=== PATIENT | female | born 1980 | race Two or more races ===

== ENCOUNTER 2025-02-07 19:53 | Emergency (ER) | payer MEDICAID, SELFPAY ==
[2025-02-07 20:01] VITALS: PULSE 118; RESP 20; O2SAT 99
--- NOTE | 2025-02-07 20:05 | XR_ITS ---
Examination: Humerus 2 views left Technique: Humerus, AP lateral 2 views Date and time of exam: 2105 hours INDICATIONS: Patient fell today with injury to the arm, arm pain FINDINGS: Acute angulated displaced fracture distal humeral shaft No foreign body IMPRESSION: Acute angulated displaced fracture distal humeral shaft
--- NOTE | 2025-02-07 20:05 | XR_ITS ---
Examination: Forearm, left, 2 views. Technique: Forearm, AP, lateral 2 views Date and time of exam: 0909 hours INDICATIONS: Patient fell today with injury to forearm, forearm pain FINDINGS: No acute forearm fracture No dislocation Partial visualization angulated displaced fracture distal humerus IMPRESSION: Partial visualization angulated displaced fracture distal humeral shaft
--- NOTE | 2025-02-07 20:06 | EDNOTE_ITS ---
Upper Extremity Injury RME/HPI General Chief Complaint: Extremity Injury, Upper Stated Complaint: ARM FRACTURE Time Seen by Provider: 02/07/25 20:01 Arrival date/time: 02/07/25 19:53 RME / HPI RME / HPI narrative: 44-year-old female patient nonverbal, mentally delayed, was brought in by EMS for evaluation regarding possible shoulder injury. Apparently patient was on the chair rocking herself and the patient fell down and now patient is seems having pain to the left shoulder. No obvious deformity noted. No head injury no LOC no vomiting no medication was taken prior to arrival. Related Data Previous Rx's ?Medication ?Instructions ?Recorded acetaminophen 300 mg-codeine 30 mg 1 tab PO TID PRN pa in #20 tabs 02/07/25 tablet Allergies Allergy/AdvReac Type Severity Reaction Status Date / Time No Known Allergies Allergy Verified 02/07/25 20:07 Review of Systems Review of Systems Narrative Review of Systems: Review of system reviewed and within normal limits except mentioned in HPI ED Exam Narrative Physical exam: VITAL SIGNS: Reviewed. GENERAL APPEARANCE: Alert and interactive, follows commands, no acute distress, HEAD AND FACE: Non-traumatic. ENT: PERRL, pink conjunctivitis, eyelid no trauma, Mucous membrane moist. NECK: Supple, nontender, no nuchal rigidity. CHEST: No tenderness, no crepitus, no paradoxical movement, no retractions. LUNGS: Clear, well ventilated, symmetric, no rales, no wheezing, no ronchi, no stridor, good breath sounds bilaterally. HEART: Regular rate, regular rhythm, no murmur, no gallops. ABDOMEN: Soft, positive bowel sounds, nondistended, no guarding, nontender, no rebound, no masses, RECTAL: Deferred. GENITAL: Deferred. NEUROLOGICAL: Gross motor function intact sensory function intact, Appropriate for age. MUSCULOSKELETAL: low back nontender, full range of motion. EXTREMITIES: Left shoulder swelling, tender, with limitation range of motion. SKIN: Color pink, dry, no rash, no lacerations, no abrasions, no contusions. LYMPHATICS: Deferred. Course Quality Measures none Orders Category Date Time Status splint [Splint / Immobilizer] STAT Care 02/07/25 21:52 Completed Consult to Orthopedic Stat Cons 02/07/25 22:58 Ordered XR forearm LT 2V Stat Exams 02/07/25 20:05 Completed XR humerus LT MIN 2V Stat Exams 02/07/25 20:05 Completed XR humerus LT MIN 2V Stat Exams 02/07/25 22:33 Completed LORazepam [Ativan Inj] Med 02/07/25 20:16 Discontinued 1 mg IM X1 ONE Morphine Inj Med 02/07/25 20:06 Discontinued 2 mg IM X1 ONE Vital Signs Vital signs: Vital Signs Temperature 99.9 F 02/07/25 20:50 Pulse Rate 114 H 02/07/25 20:50 Respiratory Rate 20 02/07/25 20:50 Blood Pressure 151/91 H 02/07/25 20:50 Pulse Oximetry (%) 99 02/07/25 20:50 Oxygen Delivery Method Room Air 02/07/25 20:50 Extremity Injury [facility] Narrative [facility] Narrative:: 44-year-old female patient nonverbal, mentally delayed, was brought in by EMS for evaluation regarding possible shoulder injury. Apparently patient was on the chair rocking herself and the patient fell down and now patient is seems having pain to the left shoulder. No obvious deformity noted. No head injury no LOC no vomiting no medication was taken prior to arrival. X-ray of the left humerus showed spiral fracture of the distal third of the humerus Humeral/U mold splint applied to the left humerus. Distal neurovascular status intact for splinting Arm sling applied Patient was referred to orthopedic surgeon on-call, Dr. French who examined the patient in the emergency room. Patient is okay to be discharged home. Patient data External records reviewed:: None Clinical information provided by:: patient Social determinants that could affect healthcare access:: none Patient has the following chronic illnesses:: Mental retardation How is presenting disease/condition affected by chronic disease/condition?: exacerbated by Evaluation data The following diagnostics were reviewed and interpreted by me:: radiology exam(s) Lab and/or radiology exams considered but not ordered:: None Interpretation Summary: See results in MDM Medications / Prescriptions Medications or Prescriptions considered but not ordered:: None Medication administrations:: Medication Administration History Discontinued Medications Lorazepam (Lorazepam 2 Mg/Ml Vial) 1 mg IM X1 ONE Stop: 02/07/25 20:17 Last Admin: 02/07/25 20:20 Dose: 1 mg Documented By: KAYLEY Morphine Sulfate (Morphine Sulf Inj 10 Mg/Ml Vial) 2 mg IM X1 ONE Stop: 02/07/25 20:07 Last Admin: 02/07/25 20:17 Dose: 2 mg Documented By: CB Morphine and Ativan Consultations Consultation(s) initiated? (list below): Yes Consultation #1 (Physician, Specialty, Details): Dr French orthopedic surgeon Diagnosis Upper Extremity Injury Differential Diagnosis: dislocation of shoulder and fracture of humerus Most likely diagnosis given after review of the tests above:: Closed fracture humerus left, developmental delay, nonverbal Admission Indicated Admission indicated?: not indicated Admission Request Was there a request for admission?: No Disposition Plan Disposition Plan: Discharge Discharge Attestation Discharge Attestation: The patient's caregiver was given an opportunity to ask questions and understood the discharge instructions. Discharge instructions specifically effects, indications for sooner follow up or return to the emergency department, and the expected course of current diagnosis. Patient condition: Stable Discharge Plan Plan Patient Disposition: HOME (Self Care) Prescriptions/Referrals Prescriptions/Med Rec: New acetaminophen-codeine 300-30 mg tablet 1 tab PO TID PRN (Reason: pain) Qty: 20 0RF Referrals: No Primary/Family,Physician [Primary Care Provider] - In 1 week Neri French MD [Physician] - In 1 week (Please call ahead for an appointment) Problem List Clinical Impression: Humeral shaft fracture, Developmental delay, profound Patient/Caregiver Discharge Instructions Discharge Activity: activity as tolerated Education Materials: How [employer] [facility] Additional Instructions: Thank you for the opportunity for serving you today. You are stable for discharged . You are advised to: Follow-up with Dr French, orthopedic surgeon, next week Return to ED for worsening of symptoms Increase oral fluids Take medication as prescribed Do not remove the splint until seen by orthopedic surgeon Print Language: [place] Island[place] Stand Alone Forms: Danita Award Info., Patient Portal Info Letter PA/METAL TILE SETTER Supervising Physician PA/METAL TILE SETTER Supervising Physician: MD Kolton
[2025-02-07 20:07] VITALS: BMI 19.1
[2025-02-07] MEDS: MORPHINE SULF INJ 10 MG/ML VIAL 2 MG IM (20:17)
[2025-02-07] MEDS: LORazepam 2 MG/ML VIAL 1 MG IM (20:20)
[2025-02-07 20:50] VITALS: BP 151/91; PULSE 114; RESP 20; TEMP 37.7; O2SAT 99
--- NOTE | 2025-02-07 21:39 | PC.NURSE ---
pt is resting quietly on gurney. states the meds she got helped alot.
--- NOTE | 2025-02-07 22:33 | XR_ITS ---
Examination: Humerus 2 views left Technique: Humerus, AP lateral 2 views Date and time of exam: February 07, 2025 10:40 PM Comparison February 07, 2025 2101 hours INDICATIONS: Fracture of the humeral shaft and a post reduction FINDINGS: Nonstandard views Significant improvement in alignment fracture distal humeral shaft, reduction in the angulation and only 3.7 mm offset at the fracture site IMPRESSION: Significant improvement in alignment fracture humeral shaft
[2025-02-07 22:35] VITALS: BP 128/88; PULSE 117; RESP 17; O2SAT 100
--- NOTE | 2025-02-07 22:37 | ESCONSULT_ITS ---
HPI Consult details Reason for consultation narrative: Pain left arm History of present illness: Patient is a developmentally delayed 44-year-old who came in with pain left upper extremity. She has been in a very nice long-term for 15 years. She is totally unable to cooperate. Her caregiver says that sometimes she self abuses. No other obvious areas of discomfort Past Medical History Past Medical History CARDIAC: Negative Congestive Heart Failure RESPIRATORY: Negative Chronic Obstructive Pulmonary Disease (COPD) GENITOURINARY: Negative Renal Disease ENDOCRINE: Negative Diabetes Mellitus Type 1 or Diabetes Mellitus Type 2 PSYCHO/SOCIAL: Positive Psychiatric Problems and Behavior Problems OTHER HISTORY: Positive Autism Social History SMOKING STATUS: Never smoker Meds Home Medications and Allergies Allergies Allergy/AdvReac Type Severity Reaction Status Date / Time No Known Allergies Allergy Verified 02/07/25 20:07 Exam Vital Signs Temp Pulse Resp BP Pulse Ox O2 Del Method 99.9 F 117 H 17 128/88 H 100 Room Air 02/07/25 20:50 02/07/25 22:35 02/07/25 22:35 02/07/25 22:35 02/07/25 22:35 02/07/25 22:35 Temp 99.9, pulse 117 Narrative Exam Patient has relatively good alignment of proximal left humerus fracture it is a spiral type on x-ray. She is flexing and extending her fingers her wrist position is primarily flexed left upper extremity. She is unable to verbally indicate whether or not she has any numbness or tingling. She is seen flexing and extending her fingers but again it is difficult to tell because of the primarily flexed wrist position she does have good passive range of motion left wrist Assessment & Plan Additional Assessment Additional comments: Long spiral fracture proximal to distal third humeral shaft fracture. Good alignment on 1 view angulation on a second view Alignment is easily corrected. David BARKLEY and I manipulated the fracture and a sugar-tong's splint was applied I wrapped the arm as David maintained the reduction. We are going to get post splint films Plan There is a question whether or not it should be fixed with the fact that she is totally uncooperative it may be difficult to maintain alignment and the sugar- tong use splint we will just have to see how things go there is some indication for intramedullary fixation. I am concerned about her total lack of ability to the to cooperate. When it take her x-rays and share them with another orthopedist. It would be fine if she was transferable tonight. If she cannot be transferred tonight I would keep her in the emergency room overnight and let me review her films with orthopedist able to deliver that type of sophisticated fracture care.
== END 2025-02-07 23:27 | disposition home or self-care (01) ==
PROVIDERS: Emergency Provider Emergency Medicine
DX: S42.302A Unspecified fracture of shaft of humerus, left arm, initial encounter for closed fracture (principal); W07.XXXA Fall from chair, initial encounter
CPT/HCPCS: 29125; 73060; 73090; 96372; 99284; J2060; J2270

== ENCOUNTER → 2025-04-16 | Outpatient (CLI) | payer MEDICAID, SELFPAY ==
--- NOTE | 2025-04-16 14:05 | XR_ITS ---
Examination: Hand, left 3 views Technique: Hand AP, oblique, lateral 3 views Date and time of exam: April 16, 2025 1412 hours INDICATIONS: Injury to the hand February 07, 2025 with hand pain FINDINGS: Significant osteopenia. No acute fracture No dislocation IMPRESSION: No acute fracture
--- NOTE | 2025-04-16 14:05 | XR_ITS ---
Examination: Humerus 2 views left Technique: Humerus, AP lateral 2 views Date and time of exam: April 16, 2025 1412 hours Comparison February 07, 2025 INDICATIONS: Fracture of the humeral shaft February 07, 2025 FINDINGS: Significant healing fracture distal humeral shaft with adequate alignment Prominent osteopenia IMPRESSION: Significant healing fracture distal humeral shaft with adequate alignment
--- NOTE | 2025-04-16 14:05 | XR_ITS ---
Examination: Wrist, left 3 views Technique: Wrist AP, oblique, lateral 3 views Date and time of exam: April 16, 2025 1412 hours INDICATIONS: Injury to the wrist February 07, 2025 with wrist pain. FINDINGS: Prominent osteopenia. No acute fracture No dislocation IMPRESSION: No acute fracture
== END | disposition home or self-care (01) ==
LOC: CDIM 13:46
PROVIDERS: PCP Family Medicine; Referring Provider Orthopaedic Surgery; Visit Provider Orthopaedic Surgery
DX: S69.92XA Unspecified injury of left wrist, hand and finger(s), initial encounter (principal); S42.302A Unspecified fracture of shaft of humerus, left arm, initial encounter for closed fracture; X58.XXXA Exposure to other specified factors, initial encounter
CPT/HCPCS: 73060; 73110; 73130